=== PATIENT | male | born 1990 | race Caucasian/White ===

== ENCOUNTER 2017-09-26 11:58 | Day surgery (SDC) | payer OTHER ==
[2017-09-26] MEDS ORDERED: PROPOFOL 40 ML (16:29)
[2017-09-26] MEDS ORDERED: LIDOCAINE 2% (SDV) 5 ML INJ (16:29)
[2017-09-26] MEDS ORDERED: MIDAZOLAM 1 MG/ML 2 ML INJ (16:30)
[2017-09-26] MEDS ORDERED: PROPOFOL 20 ML (18:00)
== END 2017-09-26 19:46 | disposition home or self-care (01) ==
LOC: GIL 11:58
DX: K21.0 Gastro-esophageal reflux disease with esophagitis (principal); K64.8 Other hemorrhoids; K29.70 Gastritis, unspecified, without bleeding
CPT/HCPCS: 43239; 88305; 88312; 88313